=== PATIENT | female | born 1980 | race Caucasian/White ===

== ENCOUNTER 2021-02-15 13:31 | Emergency (ER) | payer OTHER ==
[2021-02-15 13:41] VITALS: BP 143/84; PULSE 65; TEMP 97; BMI 27.6
== END 2021-02-15 15:32 | disposition home or self-care (01) ==
LOC: JERFT 13:31
DX: S80.02XA Contusion of left knee, initial encounter (principal); W01.0XXA Fall on same level from slipping, tripping and stumbling without subsequent striking against object, initial encounter
CPT/HCPCS: 73562-TC-LT-FY; 99283-25

== ENCOUNTER 2022-03-18 10:36 | Emergency (ER) | payer OTHER ==
[2022-03-18 11:02] VITALS: BP 145/81; PULSE 79; RESP 18; TEMP 98.3; BMI 24.7
== END 2022-03-18 12:04 | disposition home or self-care (01) ==
LOC: JER 10:36 → JERFT 10:36
DX: Z76.0 Encounter for issue of repeat prescription (principal)
CPT/HCPCS: 99283-25

== ENCOUNTER 2022-06-15 10:31 | Emergency (ER) | payer OTHER ==
[2022-06-15 10:44] VITALS: BP 136/82; PULSE 74; RESP 20; TEMP 98; BMI 24.7
== END 2022-06-15 11:28 | disposition home or self-care (01) ==
LOC: JERFT 10:31 → JER 10:31 → JERFT 11:28
DX: Z76.0 Encounter for issue of repeat prescription (principal)
CPT/HCPCS: 99281-25